=== PATIENT | female | born 1970 | race Caucasian/White ===

== ENCOUNTER 2020-02-06 11:29 | Emergency (ER) | payer OTHER, SELFPAY ==
[2020-02-06 11:36] VITALS: BP 171/99; PULSE 178; RESP 14; TEMP 36.9; O2SAT 100; BMI 22.8
--- NOTE | 2020-02-06 11:41 | DI.RAD.S_ITS ---
PROCEDURE: XR CHEST 1V INDICATIONS: Chest Pain TECHNIQUE: One view of the chest was acquired. COMPARISON: None. FINDINGS: Surgical changes and devices: None. Lungs and pleura: Lungs are clear. No pleural effusions or pneumothorax. Mediastinum: Mediastinal contours appear normal. Heart size is normal. Bones and chest wall: No suspicious bony lesions. Overlying soft tissues appear unremarkable. IMPRESSION: No acute pulmonary process. Dictated by: Janie Topete M.D. on 02/06/2020 at 12:30 Approved by: Janie Topete M.D. on 02/06/2020 at 12:30
--- NOTE | 2020-02-06 11:47 | ED.ARRPALP ---
HPI - Arrhythmia/Palpitations <JOSIAH Ayala - Last Filed: 02/06/20 18:25> General Chief Complaint: Arrhythmia/Palpitations Stated Complaint: Fast heart rate over 20 minutes Time Seen by Provider: 02/06/20 11:32 Source: patient Mode of arrival: Ambulatory Limitations: no limitations History of Present Illness HPI narrative: 49yo female with a history of migraines presens to the emergency department complaining of sudden onset of rapid heart rate, shortness of breath, and chest heaviness that started at 1103AM this morning. She states she was sitting when this occurred. She states she has had a history of occasional very short runs of heart palpitations, she has mentioned this to her doctor but they thought it was related to her stomach pain that they have been working up. Vagal maneuvers were tried immediately with no success. Patient denies any other symptoms such as fever, cough, nausea, vomiting, diarrhea, chest pain, wheezing, or any other concerns. Patient denies taking any herbal suppliments, caffeine use, or any recreational drug use. Patient started taking Wellbutrin for pain approximately 1-1.5 weeks ago. She states she has had these short episodes of palpitations before taking this medication. Related Data Home Medications Medication Instructions Recorded Confirmed chromium picolinate 200 mg PO #0 09/13/17 06/14/18 diphenhydramine HCl [Benadryl 25 mg PO Q6HP PRN #0 09/13/17 06/14/18 Allergy] loratadine [Claritin] 5 mg PO #0 09/13/17 06/14/18 magnesium citrate 400 mg PO #0 09/13/17 06/14/18 melatonin 10 mg PO HS #0 09/13/17 06/14/18 Previous Rx's Medication Instructions Recorded rizatriptan 10 mg PO SEE INSTRUCTIONS #6 tab 09/13/17 amitriptyline 50 mg PO HS #30 tab 02/12/18 eletriptan 40 mg PO SEE INSTRUCTIONS PRN #12 02/12/18 tab erenumab-aooe 70 mg/mL 140 mg SUBCUT QMONTH #2 ml 02/11/19 subcutaneous auto-injector Allergies Allergy/AdvReac Type Severity Reaction Status Date / Time No Known Drug Allergies Allergy Verified 02/06/20 11:36 Review of Systems <JOSIAH Ayala - Last Filed: 02/06/20 18:25> Review of Systems Narrative: REVIEW OF SYSTEMS: GENERAL: Denies fever or chills. HENT: No head trauma, hearing loss or sore throat. EYES: No loss of vision, double vision, eye pain, or irritation. CARDIOVASCULAR: Complains of heart palpitations, see HPI. Denies syncope. RESPIRATORY: Reports shortness of breath, no cough, see HPI. GASTROINTESTINAL: No nausea, vomiting, diarrhea, or constipation. GENITOURINARY: No flank pain or dysuria. MUSCULOSKELETAL: No pain, weakness, or deformities. INTEGUMENTARY: No rash, lesions, or pruritus. NEURO: No numbness, tingling, memory loss, or confusion. PSYCH: No behavior or mood changes. Patient History <JOSIAH Ayala - Last Filed: 02/06/20 18:25> Medical History Migraines (Acute) Social History Smoking Status: Never smoker Smoking Status: Never smoker alcohol intake frequency: holidays/special occasions only Substance Use Type: does not use Exam <JOSIAH Ayala - Last Filed: 02/06/20 18:25> Initial Vital Signs Initial Vital Signs: Vital Signs Temperature 98.5 F 02/06/20 11:36 Pulse Rate 178 H 02/06/20 11:36 Respiratory Rate 14 02/06/20 11:36 Blood Pressure 171/99 H 02/06/20 11:36 Pulse Oximetry 100 02/06/20 11:36 PHYSICAL EXAMINATION: GENERAL: Well groomed, alert, and cooperative. Answers questions promptly and appropriately. Vital signs noted. HENT: Normocephalic, atraumatic. Ear canals patent. Oral mucosa is pink and moist. EYES: Conjunctiva pink, sclera white, no periorbital swelling. CHEST: Normal to inspection and without deformities. CARDIOVASCULAR: Initial tachycardia, post adenosine administration, S1-S2 sounds heard without murmur. RESPIRATORY: Normal respiratory rate, trachea midline, airway patent. No stridor, nasal flaring or accessory muscle use. Lungs are clear in all robison without wheeze, rhonchi, or crackles. GASTROINTESTINAL: Bowel sounds normoactive. Abdomen is soft and non-tender. No organomegaly. MUSCULOSKELETAL: Normal gait and coordination. Equal tone and mass bilaterally. EXTREMITIES: CMS intact. Moves all extremities. SKIN: Warm, dry, soft, appropriate color for ethnicity. No lesions, rashes, or wounds. NEURO: Alert and Oriented X 3. Good coordination. No ataxia, or sensory deficits, or cognitive issues. PSYCH: Appropriate affect and mood. <Roro Chiang MD - Last Filed: 02/12/20 07:03> Initial Vital Signs Initial Vital Signs: Vital Signs Temperature 98.5 F 02/06/20 11:36 Pulse Rate 178 H 02/06/20 11:36 Respiratory Rate 14 02/06/20 11:36 Blood Pressure 171/99 H 02/06/20 11:36 Pulse Oximetry 100 02/06/20 11:36 Course <JOSIAH Ayala - Last Filed: 02/06/20 18:25> Course Course Narrative: Initially upon presentation, vagal maneuvers were tried without success. EKG showed SVT rate of 160-180bpm without hypotension. Denies any was ordered, patient was placed on D-fib monitor for precautions, 1 L of normal saline was prepared. 6 mg of adenosine was given with Dr. Chiang at the bedside for the entire duration of procedure. In 1 minute after administration, patient's given return to sinus tachy, patient reported complete resolution of symptoms. Patient was able to ambulate, use the bathroom, and ED without symptoms returning. Orders Ordered: Discontinued Medications Adenosine (Adenocard) 6 mg IV NOW ONE Stop: 02/06/20 11:45 Last Admin: 02/06/20 12:05 Dose: 6 mg Documented by: TODD Adenosine (Adenocard) 12 mg IV NOW ONE Stop: 02/06/20 11:45 Sodium Chloride (Normal Saline 0.9%) 1,000 mls @ 150 mls/hr IV CONT BLAYNE Last Admin: 02/06/20 12:07 Dose: 150 mls/hr Documented by: TODD Consultations Consultation #1: Staffed with Dr. Chiang. Vital Signs Vital signs: Vital Signs - 8 hr 02/06/20 11:36 02/06/20 11:58 02/06/20 12:01 Temperature 98.5 F Pulse Rate 178 H 178 H 103 H Respiratory Rate 14 22 16 Blood Pressure 171/99 H Blood Pressure [Right Arm] 131/99 H 129/86 Pulse Oximetry 100 100 100 02/06/20 12:32 02/06/20 13:06 Temperature Pulse Rate 86 86 Respiratory Rate 20 18 Blood Pressure 132/86 Blood Pressure [Right Arm] 139/77 Pulse Oximetry 97 95 <Roro Chiang MD - Last Filed: 02/12/20 07:03> Orders Ordered: Discontinued Medications Adenosine (Adenocard) 6 mg IV NOW ONE Stop: 02/06/20 11:45 Last Admin: 02/06/20 12:05 Dose: 6 mg Documented by: TODD Adenosine (Adenocard) 12 mg IV NOW ONE Stop: 02/06/20 11:45 Sodium Chloride (Normal Saline 0.9%) 1,000 mls @ 150 mls/hr IV CONT BLAYNE Last Admin: 02/06/20 12:07 Dose: 150 mls/hr Documented by: TODD Vital Signs Vital signs: Vital Signs - 8 hr 02/06/20 11:36 02/06/20 11:58 02/06/20 12:01 Temperature 98.5 F Pulse Rate 178 H 178 H 103 H Respiratory Rate 14 22 16 Blood Pressure 171/99 H Blood Pressure [Right Arm] 131/99 H 129/86 Pulse Oximetry 100 100 100 02/06/20 12:32 02/06/20 13:06 Temperature Pulse Rate 86 86 Respiratory Rate 20 18 Blood Pressure 132/86 Blood Pressure [Right Arm] 139/77 Pulse Oximetry 97 95 MDM - Arrhythmia/Palpitations <JOSIAH Ayala - Last Filed: 02/06/20 18:25> Medical Records Attestation: I reviewed the patient's medical records. Lab Data Attestation: I reviewed the patient's lab results. Result diagrams: 02/06/20 11:35 02/06/20 11:35 Labs: Lab Results 02/06/20 02/06/20 02/06/20 Range/Units 11:35 11:35 11:55 WBC 9.4 (4.5-11.0) X10^3/uL RBC 5.08 (4.0-5.2) X10^6/uL Hgb 15.7 (12.0-16.0) g/dL Hct 45.6 (36-46) % MCV 89.8 (80-100) fL MCH 31.0 (26-34) PG MCHC 34.5 (30-36) % RDW 13.1 (11.6-14.8) % Plt Count 255 (150-400) X10^3/uL Neut % (Auto) 69.4 (50-75) % Lymph % (Auto) 22.9 L (25-40) % [place] % (Auto) 6.3 (3-14) % Eos % (Auto) 0.9 L (2-4) % Baso % (Auto) 0.5 (0-2) % Neut # (Auto) 6500 (9463-7470) /uL Lymph # (Auto) 2100 (5059-6244) /uL [place] # (Auto) 600 (0-900) /uL Eos # (Auto) 100 (0-450) /uL Baso # (Auto) 0 (0-100) /uL Sodium 139 (137-145) mmol/L Potassium 3.8 (3.4-5.1) mmol/L Chloride 105 (98-107) mmol/L Carbon Dioxide 24 (22-32) mmol/L BUN 14 (7-17) mg/dL Creatinine 0.63 (0.52-1.04) mg/dL Estimated GFR > 60.0 (>60) mL/min BUN/Creatinine Ratio 22.2 H (6-22) Glucose 111 H (70-100) mg/dL Calcium 9.9 (8.4-10.2) mg/dL Total Bilirubin 0.6 (0.2-1.3) mg/dL AST 25 (14-36) IU/L ALT 19 (<35) IU/L Alkaline Phosphatase 73 (38-126) U/L Total Creatine Kinase 28 L (30-135) U/L CK-MB (CK-2) TNP CK-MB (CK-2) Rel Index TNP Troponin I < 0.012 (0.01-0.034) ng/mL NT-Pro-B Natriuret Pep 93 (<125) pg/mL Total Protein 8.1 (6.3-8.2) g/dL Albumin 4.8 (3.5-5.0) g/dL Globulin 3.3 (1.7-4.1) g/dL Albumin/Globulin Ratio 1.5 (1.0-2.8) Lipase 101 (23-300) U/L Imaging Data Chest x-ray: Radiologist's Impresson: [address] [address] XRay Report Signed Patient: Talita Barboza MMR#: [id number] : 1970Acct:[id number] Age/Sex: 49 / FDate of Service: 02/06/20 Loc: ED Accession Number: [id number] Procedure: XR chest 1V Ordering Provider: Taylor Torres PROCEDURE: XR CHEST 1V INDICATIONS: Chest Pain TECHNIQUE: One view of the chest was acquired. COMPARISON: None. FINDINGS: Surgical changes and devices: None. Lungs and pleura: Lungs are clear. No pleural effusions or pneumothorax. Mediastinum: Mediastinal contours appear normal. Heart size is normal. Bones and chest wall: No suspicious bony lesions. Overlying soft tissues appear unremarkable. IMPRESSION: No acute pulmonary process. Dictated by: Janie Topete M.D. on 02/06/2020 at 12:30 Approved by: Janie Topete M.D. on 02/06/2020 at 12:30 ECG Data Interpretation: Intial EKG 11:40AM : SVT, rate 164, QTC 290. Difficult to visualize ST segment, no elevation or depression observed. EKG was also viewed by Dr. Chiang per protocol. EKG 2 Post adenosine 12:10PM: Normal sinus rhythm, rate 77, MT interval 138, QTC 452. No ST elevation or ST depression. No T-wave inversion. Artifact noted in V4. EKG viewed by Dr. Chiang. [facility] Narrative Medical decision making narrative: 49-year-old female with no history of SVT but history of occasional short runs of ?palpitations ?without a specific diagnosis, presents emergency department for shortness of breath, chest pressure, and feelings of rapid heart rate. Patient presents initially in SVT, she reverted to normal sinus rhythm after administration of adenosine 6m IV (Dr. Chiang present for the entire procedure). Patient does not have any increased risk factors such as heavy caffeine use, herbal supplements, or recreational drug use. Unsure exact cause of SVT. Since patient's symptoms resolved significantly after adenosine administration, less suspicion for other cardiac abnormalities which is further supported by negative troponin, unremarkable EKG post procedure, and normal laboratory work including BNP. Patient was encouraged to follow up with her primary care provider about discussion of a ekg monitor if symptoms palpitations continue. Strict return precautions given for new or worsening symptoms. Patient agreed to plan of care verbalized understanding. Patient was with who was at the bedside in understood discharge instructions as well. <Roro Chiang MD - Last Filed: 02/12/20 07:03> Lab Data Labs: Lab Results 02/06/20 02/06/20 02/06/20 Range/Units 11:35 11:35 11:55 WBC 9.4 (4.5-11.0) X10^3/uL RBC 5.08 (4.0-5.2) X10^6/uL Hgb 15.7 (12.0-16.0) g/dL Hct 45.6 (36-46) % MCV 89.8 (80-100) fL MCH 31.0 (26-34) PG MCHC 34.5 (30-36) % RDW 13.1 (11.6-14.8) % Plt Count 255 (150-400) X10^3/uL Neut % (Auto) 69.4 (50-75) % Lymph % (Auto) 22.9 L (25-40) % [place] % (Auto) 6.3 (3-14) % Eos % (Auto) 0.9 L (2-4) % Baso % (Auto) 0.5 (0-2) % Neut # (Auto) 6500 (3525-3613) /uL Lymph # (Auto) 2100 (6049-0074) /uL [place] # (Auto) 600 (0-900) /uL Eos # (Auto) 100 (0-450) /uL Baso # (Auto) 0 (0-100) /uL Sodium 139 (137-145) mmol/L Potassium 3.8 (3.4-5.1) mmol/L Chloride 105 (98-107) mmol/L Carbon Dioxide 24 (22-32) mmol/L BUN 14 (7-17) mg/dL Creatinine 0.63 (0.52-1.04) mg/dL Estimated GFR > 60.0 (>60) mL/min BUN/Creatinine Ratio 22.2 H (6-22) Glucose 111 H (70-100) mg/dL Calcium 9.9 (8.4-10.2) mg/dL Total Bilirubin 0.6 (0.2-1.3) mg/dL AST 25 (14-36) IU/L ALT 19 (<35) IU/L Alkaline Phosphatase 73 (38-126) U/L Total Creatine Kinase 28 L (30-135) U/L CK-MB (CK-2) TNP CK-MB (CK-2) Rel Index TNP Troponin I < 0.012 (0.01-0.034) ng/mL NT-Pro-B Natriuret Pep 93 (<125) pg/mL Total Protein 8.1 (6.3-8.2) g/dL Albumin 4.8 (3.5-5.0) g/dL Globulin 3.3 (1.7-4.1) g/dL Albumin/Globulin Ratio 1.5 (1.0-2.8) Lipase 101 (23-300) U/L Discharge Plan Departure Patient Disposition: Home Clinical Impression: Paroxysmal supraventricular tachycardia Discharge Date/Time: 02/06/20 13:07 Instructions: Paroxysmal Supraventricular Tachycardia Activity Restrictions/Additional Instructions: Thank you for entrusting me with your care today. As discussed, your symptoms were caused by a rhythm called supraventricular tachycardia, this resulting in your heart beating too quickly. We gave you a medication to restart your heart, your rhythm is now normal. Your laboratory work and chest x-ray are non-remarkable. Please monitor symptoms closely, return to the emergency department if any symptoms reoccur such as chest pain, shortness of breath, dizziness, heart palpitations, or any other concerns. You may also try bearing down, holding his breath and pushing like attempting to have a bowel movement, this can sometimes correct this arrhythmia if it reoccurs. Please follow up with her primary care provider in 1-2 weeks for further evaluation. Prescriptions: No Action magnesium citrate 296 ML solution 400 mg PO Qty: 0 RF: 0 loratadine [Claritin] 5 MG/5 ML solution 5 mg PO Qty: 0 RF: 0 chromium picolinate 200 MCG tablet 200 mg PO Qty: 0 RF: 0 melatonin 10 MG capsule 10 mg PO HS Qty: 0 RF: 0 diphenhydramine HCl [Benadryl Allergy] 25 MG tablet 25 mg PO Q6HP PRNQty: 0 RF: 0 rizatriptan 10 MG tablet 10 mg PO SEE INSTRUCTIONS Qty: 6 RF: 11 amitriptyline 50 MG tablet 50 mg PO HS Qty: 30 RF: 11 eletriptan 40 MG tablet 40 mg PO SEE INSTRUCTIONS PRNQty: 12 RF: 11 Aimovig Autoinjector (2 Pack) 70 mg/mL auto-injector 140 mg SUBCUT QMONTH Qty: 2 RF: 6 Referrals: Aissatou Elder ARNP [Primary Care Provider] -
[2020-02-06 11:48] LABS: Add Manual Diff / Slide Review NO; Basophils Absolute Auto 0 /uL (0-100); Basophils Percent Auto 0.5 % (0-2); Eosinophils Absolute Auto 100 /uL (0-450); Eosinophils Percent Auto 0.9 % (2-4); Hematocrit 45.6 % (36-46); Hemoglobin 15.7 g/dL (12.0-16.0); Lymphocytes Absolute Auto 2100 /uL (1100-4500); Lymphocytes Percent Auto 22.9 % (25-40); Mean Corpuscular HGB Conc 34.5 % (30-36); Mean Corpuscular Volume 89.8 fL (80-100); Monocytes Absolute Auto 600 /uL (0-900); Monocytes Percent Auto 6.3 % (3-14); Neutrophils Absolute Auto 6500 /uL (1500-7000); Neutrophils Percent Auto 69.4 % (50-75); Platelet Count 255 X10^3/uL (150-400); Red Blood Cell Count 5.08 X10^6/uL (4.0-5.2); Red Cell Distribution Width 13.1 % (11.6-14.8); White Blood Cell Count 9.4 X10^3/uL (4.5-11.0)
[2020-02-06 11:54] LABS: Alanine Aminotransferase 19 IU/L (<35); Albumin 4.8 g/dL (3.5-5.0); Albumin Globulin Ratio 1.5 (1.0-2.8); Alkaline Phosphatase 73 U/L (38-126); Aspartate Aminotransferase 25 IU/L (14-36); BUN Creatinine Ratio 22.2 (6-22); Bilirubin Total 0.6 mg/dL (0.2-1.3); Blood Urea Nitrogen 14 mg/dL (7-17); Calcium 9.9 mg/dL (8.4-10.2); Carbon Dioxide 24 mmol/L (22-32); Chloride 105 mmol/L (98-107); Creatine Kinase 28 U/L (30-135); Estimated Glomerular Filt Rate > 60.0 mL/min (>60); Globulin 3.3 g/dL (1.7-4.1); Glucose 111 mg/dL (70-100); HEMOLYSIS < 15 (0-50); Lipase 101 U/L (23-300); Potassium 3.8 mmol/L (3.4-5.1); Sodium 139 mmol/L (137-145); Total Protein 8.1 g/dL (6.3-8.2)
[2020-02-06 11:58] VITALS: BP 131/99; PULSE 178; RESP 22; O2SAT 100
[2020-02-06 12:01] VITALS: BP 129/86; PULSE 103; RESP 16; O2SAT 100
[2020-02-06 12:05] LABS: Troponin I < 0.012 ng/mL (0.01-0.034)
[2020-02-06] MEDS: ADENOSINE 6 MG/2 ML VIAL IV (12:05)
[2020-02-06] MEDS: SODIUM CHLORIDE 0.9% 1,000 ML 150 ML IV (12:07)
--- NOTE | 2020-02-06 12:09 | PC.NURSE ---
pt was given 6mg of adenosine at [address] Chiang and Taylor Florence at bedside. Pt HR originally at 180 SVT. Patient had mild pause but remained awake and oriented during procedure. HR is slowly lowering. HR currently at 79 BPM. Verbal order to give bolus of fluid. Patient resting and in no acute distress.
--- NOTE | 2020-02-06 12:11 | PC.NURSE ---
PRE ADENOSINE ADMINISTRATION
--- NOTE | 2020-02-06 12:12 | PC.NURSE ---
POST ADENOSINE VITALS
[2020-02-06 12:14] LABS: NT-proBNP (BNP-Adult 18+) 93 pg/mL (<125)
[2020-02-06 12:32] VITALS: BP 139/77; PULSE 86; RESP 20; O2SAT 97
[2020-02-06 13:06] VITALS: BP 132/86; PULSE 86; RESP 18; O2SAT 95
== END 2020-02-06 13:07 | disposition home or self-care (01) ==
PROVIDERS: Emergency Provider Nurse Practitioner; PCP Nurse Practitioner Family
DX: I47.1 Supraventricular tachycardia (principal); R06.02 Shortness of breath; R07.9 Chest pain, unspecified
CPT/HCPCS: 71045; 80053; 82550; 83690; 83880; 84484; 85025; 93005; 96374; 99284; J0153